=== PATIENT | male | born 1985 | race Caucasian/White ===

== ENCOUNTER 2021-07-29 14:46 | Emergency (ER) | payer MEDICAID, SELFPAY ==
--- NOTE | ~2021-07-29 | XR_ITS ---
EXAMINATION: XR CHEST CLINICAL INFORMATION: Cough. Shortness of breath. Positive COVID test. COMPARISON: Chest done on 01/19/2012. TECHNIQUE: Frontal view of the chest was obtained. FINDINGS: Low lung volume is present. No evidence of any lung parenchymal alveolar or interstitial disease. No evidence of any pleural effusion or pneumothorax. The cardiac mediastinal silhouette is within normal limit. Incidental note is made of a approximately 1 cm focal radiodensity seen projecting at the right upper quadrant of the abdomen, may represent right lower lobar parenchymal versus right upper quadrant abdominal abnormality. Not optimally characterized on this single upright frontal radiograph. This appears new since prior study dated 01/09/2012. XR/XR chest 1V IMPRESSION: 1. No radiographic evidence of any acute cardiopulmonary disease. 2. 1 cm focal radiodensity seen projecting at right upper quadrant of the abdomen, not optimally localized or characterized, new since prior study dated 01/09/2012.
[2021-07-29 15:37] VITALS: BP 127/83; PULSE 109; RESP 16; TEMP 37.6; O2SAT 96; BMI 44.9
--- NOTE | 2021-07-29 15:51 | ECG_ITS ---
Test Reason : sob Blood Pressure : / mmHG Vent. Rate : 089 BPM Atrial Rate : 089 BPM P-R Int : 142 ms QRS Dur : 092 ms QT Int : 390 ms P-R-T Axes : 038 039 029 degrees QTc Int : 474 ms Artifact in tracing Normal sinus rhythm Normal ECG When compared with ECG of 22-AUG-2007 21:02, No significant changes seen Referred By: Tianna Mcdermott Electronically Signed By:RADHA SELF
[2021-07-29] MEDS: Ibuprofen 800 MG TABLET PO (16:28)
[2021-07-29 16:37] LABS: MANUAL DIFF FLAG NO
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
[2021-07-29 16:40] LABS: Basophils Percent Auto 0.3 % (0-2); Eosinophils Percent Auto 0.3 % (0-4); Hematocrit 43.6 % (42.0-52.0); Hemoglobin 14.3 g/dl (14.0-18.0); Imm Gran Abs Auto 0.02 X10*3/uL (0.00-0.03); Imm Gran Pct Auto 0.3 % (0.0-0.4); Lymphocytes Absolute Auto 0.5 X10*3/uL (1.2-4.9); Lymphocytes Percent Auto 6.4 % (20-40); Mean Corpuscular HGB Conc 32.8 g/dl (31.0-36.0); Mean Corpuscular Hemoglobin 29.5 pg (27.0-33.0); Mean Corpuscular Volume 90.1 fL (80.0-98.0); Mean Platelet Volume 10.9 fL (9.4-12.4); Monocytes Absolute Auto 0.9 X10*3/uL (0.1-1.2); Monocytes Percent Auto 13.2 % (2-11); Neutrophils Absolute Auto 5.6 x10*3/uL (2.0-8.3); Neutrophils Percent Auto 79.5 % (45-73); Platelet Count 232 X10*3/uL (160-400); Red Blood Count 4.84 X10*6/uL (4.60-5.80); Red Cell Distribution Width 13.1 % (11.0-16.0); White Blood Count 7.1 X10*3/uL (4.8-10.8)
[2021-07-29 16:45] LABS: INTERNATIONAL NORM RATIO 1.1 (0.9-1.1); Prothrombin Time 12.9 SEC (9.9-13.0)
[2021-07-29 16:51] LABS: COVID-19 Test Positive (Negative); IDNOW Serial# 16C4AD1C
[2021-07-29 16:52] LABS: Strep A Nucleic Acid Negative (Negative)
[2021-07-29 17:00] LABS: Alanine Aminotransferase 40 U/L (0-40); Albumin Level 4.3 g/dL (3.5-5.0); Alkaline Phosphatase 87 U/L (39-117); Anion Gap 13 (12-20); Aspartate Amino Transferase 24 U/L (5-37); Bilirubin Total 0.3 mg/dL (0.0-1.0); Blood Urea Nitrogen 10 mg/dL (9-16); Calcium 9.1 mg/dL (8.4-10.2); Carbon Dioxide 26 mmol/L (22-29); Chloride 102 mmol/L (96-108); Creatinine Clr Calc Pharmacy 155.2; Estimated Glomerular Filt Rate > 60; Glucose Random 109 mg/dL (60-115); Potassium 4.1 mmol/L (3.3-5.1); Sodium 137 mmol/L (135-145)
[2021-07-29 17:02] LABS: B Type Natriuretic Peptide 17 pg/mL (<100)
[2021-07-29 17:14] LABS: Troponin-I High Sensitivity < 3.5 ng/L (<3.5-35.0)
== END 2021-07-29 17:29 | disposition home or self-care (01) ==
PROVIDERS: Physician Assistant Medical; Emergency Provider Emergency Medicine; PCP Internal Medicine
DX: U07.1 COVID-19 (principal); R06.02 Shortness of breath; Z20.822 Contact with and (suspected) exposure to COVID-19; Z79.899 Other long term (current) drug therapy
CPT/HCPCS: 36415; 71045; 80053; 83735; 83880; 84484; 85025; 85610; 87635; 87651; 93005; 99284

== ENCOUNTER → 2021-10-09 09:01 | Outpatient (BNVA) | payer MEDICAID, SELFPAY | PROVIDERS: PCP Internal Medicine; Visit Provider Surgery Vascular Surgery | DX: I83.12 Varicose veins of left lower extremity with inflammation (principal); F17.210 Nicotine dependence, cigarettes, uncomplicated | CPT/HCPCS: 99202 ==

== ENCOUNTER 2021-12-10 10:00 | Outpatient (REF) | payer MEDICAID, SELFPAY ==
--- NOTE | ~2021-12-10 | US_ITS ---
EXAMINATION: US LOWER EXTREMITY VENOUS (REFLUX EXAM), BILATERAL CLINICAL INDICATION: This is a 36-year-old male with venous insufficiency and varicose veins. COMPARISON: None. TECHNIQUE: Color flow triplex imaging and compression Doppler was performed to evaluate both the deep and the superficial systems bilaterally. To evaluate the superficial system, the examination was performed in the upright position. Color-flow Doppler ultrasound and compression ultrasound were utilized. In addition, maneuvers were utilized to demonstrate reflux. FINDINGS: 1. DEEP VENOUS ULTRASOUND OF THE RIGHT LOWER EXTREMITY: Common Femoral Vein: Compressible, normal respiratory variation and augmented flow. Femoral vein: Compressible, normal color flow and augmentation. Popliteal Vein: Compressible, with 888 ms of reflux. Deep Reflux: There is evidence of reflux in the deep system in the common femoral vein and the popliteal vein. There is no evidence of a Noguera's cyst. 2. SUPERFICIAL ULTRASOUND WITH DOPPLER OF RIGHT LOWER EXTREMITY: GREAT SAPHENOUS VEIN: Saphenofemoral Junction: 0.7 cm. There is no reflux.. There is reflux in the proximal thigh great saphenous vein measuring 0.5 cm with the reflux time of 1980 ms. Mid Thigh: 0.3 cm. There is no reflux Above Knee: 0.3 cm. There is no reflux. Below Knee: 0.3 cm. There is no reflux. Mid Calf: 0.2 cm. The reflux time is 2 seconds. Ankle: 0.4 cm. There is no reflux. GSV REFLUX: There are isolated areas of reflux present as described DUPLICATED GREAT SAPHENOUS VEIN: There is a 0.3 cm duplicated medial great saphenous vein without reflux SMALL SAPHENOUS VEIN: Proximal: 0.4 cm. There is no reflux. Distal: 0.2 cm. The reflux time is 2560 ms. SSV REFLUX: No evidence of reflux. VEIN OF GIACOMINI: None Imaged. 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 VARICOSITIES: There are 0.3 cm mid thigh varicose veins with 2003 and 64 ms of reflux. 3. DEEP VENOUS ULTRASOUND OF THE LEFT LOWER EXTREMITY: Common Femoral Vein: Compressible, with reflux of 1432 ms. Femoral Vein: Compressible, with reflux of 676 ms. Popliteal Vein: Compressible, normal augmentation. Deep Reflux: There is evidence of reflux in the deep system in the common femoral vein and the femoral vein. There is no evidence of a Noguera's cyst. 4. SUPERFICIAL ULTRASOUND WITH DOPPLER OF LEFT LOWER EXTREMITY: GREAT SAPHENOUS VEIN: Saphenofemoral Junction: 0.9 cm Mid Thigh: 0.5 cm Above Knee: 0.5 cm Below Knee: 0.3 cm Mid Calf: 0.3 cm. The reflux time is 1040 ms. Ankle: 0.4 cm. The reflux time is 700 ms per GSV REFLUX: There is distal reflux but not reflux at the junction. DUPLICATED GREAT SAPHENOUS VEIN: There is a 0.5 cm duplicated medial great saphenous vein without reflux. SMALL SAPHENOUS VEIN: Proximal: 0.6 cm Distal: 0.4 cm SSV REFLUX: No evidence of reflux. VEIN OF GIACOMINI: None Imaged. PERFORATORS: None Imaged VARICOSITIES: There are 0.3 cm varicose veins in the proximal thigh without reflux. US/US venous duplex LE BI IMPRESSION: 1. There are bilateral patent great saphenous veins with isolated areas of reflux as described. 2. There are bilateral patent small saphenous veins without reflux at the junctions, respectively. 3. Varicose veins are noted bilaterally as described.
== END 2021-12-10 10:01 | disposition home or self-care (01) ==
LOC: HO.US 10:00
PROVIDERS: Visit Provider Surgery Vascular Surgery
DX: I83.12 Varicose veins of left lower extremity with inflammation (principal)
CPT/HCPCS: 93970

== ENCOUNTER → 2021-12-18 12:35 | Outpatient (BNVA) | payer MEDICAID, SELFPAY | PROVIDERS: PCP Internal Medicine; Visit Provider Surgery Vascular Surgery | DX: I83.12 Varicose veins of left lower extremity with inflammation (principal) | CPT/HCPCS: 99212 ==